=== PATIENT | female | born 1965 | race Native Hawaiian/Other Pacific Islander ===

== ENCOUNTER 2021-04-22 15:28 | Emergency (ER) | payer OTHER ==
[~2021-04-22] VITALS: Ht 162.6 cm; Wt 95.3 kg
[2021-04-22 15:36] VITALS: BP 128/67
[2021-04-22 16:05] LABS: PLATELET COUNT 394 K/uL (152-353)
[2021-04-22 16:11] LABS: POTASSIUM 2.9 mmol/L (3.6-5.2); SODIUM 138 mmol/L (136-145)
== END 2021-04-22 17:04 | disposition home or self-care (01) ==
LOC: ED 15:28
PROVIDERS: Emergency Medicine
DX: R05 Cough (principal); Z20.822 Contact with and (suspected) exposure to COVID-19; E87.6 Hypokalemia
CPT/HCPCS: 80048; 84484; 85027; 87635; 93005; 99283; U0003